=== PATIENT | female | born 1960 | race Caucasian/White ===

== ENCOUNTER 2016-12-20 08:15 | Emergency (ER) | payer MEDICAID ==
[2016-12-20] MEDS ORDERED: NS 1,000 ML IV ONE (08:44)
[2016-12-20] MEDS ORDERED: ONDANSETRON 4 MG/2 ML VIAL IVP ONE (08:44)
[2016-12-20] MEDS ORDERED: KETOROLAC 30 MG/1 ML SDV IVP ONE (08:44)
[2016-12-20 08:58] LABS: % IMMATURE GRANULYOCYTES 0.3 % (0.0-1.1); ABSOLUTE IMMATURE GRANULOCYTES 0.02 10^3/uL (0.00-0.10); ADD DIFF? NO; ADD MORPH? NO; ADD SCAN? NO; ATYPICAL LYMPHOCYTE FLAG 0 (0-99); FRAGMENT RBC FLAG 0 (0-99); HEMATOCRIT 46.1 % (38.0-47.0); HEMOGLOBIN 15.3 g/dL (12.6-16.3); LEFT SHIFT FLG 0 (0-99); LIPEMIA HEMOLYSIS FLAG 80 (0-99); MEAN CELL HEMOGLOBIN CONCENTR. 33.2 g/dL (32.4-36.7); MEAN CELL VOLUME 87.3 fL (81.5-99.8); MEAN PLATELET VOLUME 8.9 fL (8.7-11.7); PLATELET CLUMPS FLAG 50 (0-99); PLATELET COUNT 351 10^3/uL (150-400); RED BLOOD CELL COUNT 5.28 10^6/uL (4.18-5.33); RED CELL DISTRIBUTION WIDTH 13.2 % (11.5-15.2)
[2016-12-20 09:00] LABS: COLOR YELLOW; LEUKOCYTE ESTERASE,URINE NEGATIVE (NEGATIVE); NITRITE,URINE NEGATIVE (NEGATIVE); PH,URINE 5.5 (5.0-7.5)
--- NOTE | 2016-12-20 09:05 | EDPHY ---
H & P Time Seen by Provider: 12/20/16 08:33 HPI/ROS: CHIEF COMPLAINT: Abdominal pain and nausea History by patient HISTORY OF PRESENT ILLNESS: 54-year-old woman with a history of kidney stones and migraines presents complaining of 3 days of nausea and now left lower quadrant pain radiating into her groin. Patient states that [place] night she thought she might have eaten something bad because she felt very nauseated. She also notes that she had an episode of severe left groin pain that she describes as sharp and sudden onset and lasted a couple hours and then spontaneously resolving. The nausea started after this. She has had no diarrhea. She denies any back pain. This feels different than her prior kidney stones. She does note some pelvic fullness and feeling that she needs to urinate but having difficulty actually going. She denies any frequency, dysuria but she does have some urgency and hesitancy. She has been having normal bowel movements at least not seem to affect her symptoms. She has been anorexic and not able to eat. She is taking oral fluids. She denies any fever chills. REVIEW OF SYSTEMS: As in HPI, and all other systems reviewed and are negative - Personal History LMP (Females 10-55): Post Menopausal - Medical/Surgical History Hx Asthma: Yes Hx Chronic Respiratory Disease: No Hx Diabetes: No Hx Cardiac Disease: No Hx Renal Disease: No Hx Cirrhosis: No Hx Alcoholism: No Hx HIV/AIDS: No Hx Splenectomy or Spleen Trauma: No Other PMH: med hx-KIDNEY STONES. surg-c-sect - Family History Significant Family History: No pertinent family hx - Social History Smoking Status: Never smoked - Physical Exam Exam: General Appearance: Alert, slightly uncomfortable appearing. Eyes: Pupils equal and round no pallor or injection. ENT, Mouth: Mucous membranes moist. Respiratory: Normal, effort, There are no retractions, lungs are clear to auscultation. Cardiovascular: Regular rate and rhythm. Gastrointestinal: Abdomen is soft and mild diffuse tenderness, no masses, bowel sounds normal. No rebound or guarding Back: No CVA tenderness Neurological: Awake, alert and oriented x 3, no pronator drift, normal gait, no pronator drift Skin: Warm and dry, no rashes. Musculoskeletal: Neck is supple nontender. Extremities are symmetrical, full range of motion. Psychiatric: Patient has normal affect, there is no agitation. Constitutional: Initial Vital Signs Temperature (C) 36.9 C 12/20/16 08:20 Heart Rate 83 12/20/16 08:20 Respiratory Rate 18 12/20/16 08:20 Blood Pressure 125/60 H 12/20/16 08:20 O2 Sat (%) 95 12/20/16 08:20 O2 Delivery Mode Room Air Allergies/Adverse Reactions: No Known Allergies Allergy (Verified 12/20/16 08:55) Home Medications: Medication Instructions Recorded Naproxen 375 mg PO BID #20 tablet 12/20/16 Tamsulosin HCl [Flomax 0.4 MG (*)] 0.4 mg PO DAILY #10 cap 12/20/16 Medical Decision Making ED Course/Re-evaluation: 55-year-old woman presents with nausea, sudden onset left lower quadrant and groin pain with no fever and mild abdominal tenderness. Labs are unremarkable. Urinalysis shows hematuria and presentation is suggestive of kidney stone. Noncontrast CT was obtained because of the tenderness and slightly atypical presentation which showed a 4 mm stone at the left UV junction with mild hydronephrosis. The radiologist also notes a hypodense lesion her liver that he recommend follow-up with ultrasound. This liver lesion is unchanged from 2015. Patient was given IV fluids, Zofran and ketorolac with resolution of her nausea but persistent pain. She was then given IV lidocaine with resolution of her symptoms. We discussed the CT findings and ongoing home care for the kidney stone. She will also follow up with her primary care physician, Dr. Mccord, to schedule an ultrasound for the liver lesion as recommended by the radiologist. Patient understands and is agreeable to this plan. - Data Points Laboratory Results: Laboratory Results 12/20/16 08:45 12/20/16 08:45 12/20/16 12/20/16 12/20/16 08:55 08:45 08:45 WBC 7.75 10^3/uL 10^3/uL (3.80-9.50) RBC 5.28 10^6/uL 10^6/uL (4.18-5.33) Hgb 15.3 g/dL g/dL (12.6-16.3) Hct 46.1 % % (38.0-47.0) MCV 87.3 fL fL (81.5-99.8) MCH 29.0 pg pg (27.9-34.1) MCHC 33.2 g/dL g/dL (32.4-36.7) RDW 13.2 % % (11.5-15.2) Plt Count 351 10^3/uL 10^3/uL (150-400) MPV 8.9 fL fL (8.7-11.7) Neut % (Auto) 66.3 % % (39.3-74.2) Lymph % (Auto) 27.7 % % (15.0-45.0) [place] % (Auto) 4.3 % L % (4.5-13.0) Eos % (Auto) 1.0 % % (0.6-7.6) Baso % (Auto) 0.4 % % (0.3-1.7) Nucleat RBC Rel Count 0.0 % % (0.0-0.2) Absolute Neuts (auto) 5.14 10^3/uL 10^3/uL (1.70-6.50) Absolute Lymphs (auto) 2.15 10^3/uL 10^3/uL (1.00-3.00) Absolute Monos (auto) 0.33 10^3/uL 10^3/uL (0.30-0.80) Absolute Eos (auto) 0.08 10^3/uL 10^3/uL (0.03-0.40) Absolute Basos (auto) 0.03 10^3/uL 10^3/uL (0.02-0.10) Absolute Nucleated RBC 0.00 10^3/uL 10^3/uL (0-0.01) Immature Gran % 0.3 % % (0.0-1.1) Immature Gran # 0.02 10^3/uL 10^3/uL (0.00-0.10) Sodium 143 mEq/L mEq/L (134-144) Potassium 4.5 mEq/L mEq/L (3.5-5.2) Chloride 102 mEq/L mEq/L (97-110) Carbon Dioxide 24 mEq/l mEq/l (22-31) Anion Gap 17 mEq/L H mEq/L (8-16) BUN 18 mg/dL mg/dL (7-23) Creatinine 0.8 mg/dL mg/dL (0.6-1.0) Estimated GFR > 60 Glucose 92 mg/dL mg/dL (70-100) Calcium 10.2 mg/dL mg/dL (8.5-10.4) Total Bilirubin 0.9 mg/dL mg/dL (0.1-1.4) Conjugated Bilirubin 0.2 mg/dL mg/dL (0.0-0.5) Unconjugated Bilirubin 0.7 mg/dL mg/dL (0.0-1.1) AST 22 IU/L IU/L (14-46) ALT 24 IU/L IU/L (9-52) Alkaline Phosphatase 98 IU/L IU/L (38-126) Total Protein 8.8 g/dL H g/dL (6.3-8.2) Albumin 4.6 g/dL g/dL (3.5-5.0) Lipase 146.0 IU/L IU/L (23-300) Urine Color YELLOW Urine Appearance HAZY Urine pH 5.5 (5.0-7.5) Ur Specific [place] >= 1.030 (1.002-1.030) Urine Protein TRACE H (NEGATIVE) Urine Ketones TRACE H (NEGATIVE) Urine Blood 3+ H (NEGATIVE) Urine Nitrate NEGATIVE (NEGATIVE) Urine Bilirubin NEGATIVE (NEGATIVE) Urine Urobilinogen 0.2 EU EU (0.2-1.0) Ur Leukocyte Esterase NEGATIVE (NEGATIVE) Urine RBC 25-50 /hpf H /hpf (0-3) Urine WBC 1-3 /hpf /hpf (0-3) Ur Epithelial Cells 3+ /lpf H /lpf (NONE-1+) Amorphous Sediment 2+ /hpf H /hpf (NONE-1+) Urine Bacteria 1+ /hpf H /hpf (NONE SEEN) Urine Mucus 3+ /lpf H /lpf (NONE-1+) Urine Glucose NEGATIVE (NEGATIVE) Medications Given: Discontinued Medications Sodium Chloride (Ns) 1,000 mls @ 0 mls/hr IV ONCE ONE PRN Reason: Wide Open Stop: 12/20/16 08:45 Last Admin: 12/20/16 09:00 Dose: 1,000 mls Ketorolac Tromethamine (Toradol) 15 mg IVP EDNOW ONE Stop: 12/20/16 08:45 Last Admin: 12/20/16 09:00 Dose: 15 mg Lidocaine HCl (Lidocaine Hcl 2%) 80 mg IVP EDNOW ONE Stop: 12/20/16 09:34 Last Admin: 12/20/16 09:57 Dose: 80 mg Ondansetron HCl (Zofran) 4 mg IVP EDNOW ONE Stop: 12/20/16 08:45 Last Admin: 12/20/16 09:00 Dose: 4 mg Departure - Departure Disposition: Home, Routine, Self-Care Clinical Impression: Renal colic on left side, Lesion of liver Condition: Good Instructions: Kidney Stones (ED) Additional Instructions: You were seen by Dr. Brigette Umanzor today. Return for any worsening or new concerns. Take Flomax at night to help speed up passing of a kidney stone. Please have your primary care physician scheduled ultrasound of your liver to follow up on the lesion is seen on CT scan. Referrals: NONE *PRIMARY CARE P,. [Primary Care Provider] - As per Instructions Prescriptions: Naproxen 375 mg PO BID #20 tablet Tamsulosin HCl [Flomax 0.4 MG (*)] 0.4 mg PO DAILY #10 cap
[2016-12-20 09:09] LABS: ALANINE AMINOTRANSFERASE 24 IU/L (9-52); ALBUMIN 4.6 g/dL (3.5-5.0); ALKALINE PHOSPHATASE 98 IU/L (38-126); ANION GAP 17 mEq/L (8-16); ASPARTATE AMINOTRANSFERASE 22 IU/L (14-46); BILIRUBIN,TOTAL 0.9 mg/dL (0.1-1.4); BILIRUBIN-CONJUGATED 0.2 mg/dL (0.0-0.5); BILIRUBIN-UNCONJUGATED 0.7 mg/dL (0.0-1.1); CALCIUM 10.2 mg/dL (8.5-10.4); CARBON DIOXIDE 24 mEq/l (22-31); CHLORIDE 102 mEq/L (97-110); CREATININE 0.8 mg/dL (0.6-1.0); GLOMERULAR FILTRATION RATE > 60; GLUCOSE 92 mg/dL (70-100); POTASSIUM 4.5 mEq/L (3.5-5.2); SODIUM 143 mEq/L (134-144); TOTAL PROTEIN 8.8 g/dL (6.3-8.2)
[2016-12-20 09:14] LABS: MUCUS 3+ /lpf (NONE-1+)
[2016-12-20 09:15] LABS: AMORPHOUS 2+ /hpf (NONE-1+); BACTERIA 1+ /hpf (NONE SEEN); RBC,URINE 25-50 /hpf (0-3)
[2016-12-20] MEDS ORDERED: LIDOCAINE 2% 100 MG/5 ML SYR IVP ONE (09:33)
[2016-12-20] MEDS ORDERED: DEXTROSE IV ONE (09:35)
[2016-12-20] MEDS ORDERED: LIDOCAINE IV ONE (09:35)
[2016-12-20] MEDS ORDERED: NS 100 ML BAG IV ONE (09:52)
[2016-12-20 11:00] VITALS: RESP 16
[2016-12-20 11:03] VITALS: BP 117/62; PULSE 82; TEMP 98.1; O2SAT 97
== END 2016-12-20 11:01 | disposition home or self-care (01) ==
LOC: CED 08:15
DX: N23 Unspecified renal colic (principal); K76.9 Liver disease, unspecified; J45.909 Unspecified asthma, uncomplicated
CPT/HCPCS: 74176-PO; 80048-PO; 80076-PO; 81003-PO; 81015-PO; 83690-PO; 85025-PO; 96374; J1885; J2001; J2405

== ENCOUNTER → 2017-01-24 | Outpatient (CLI) | payer MEDICAID | LOC: CIMAGING 07:13 | PROVIDERS: ATTEND Family Medicine | DX: K76.89 Other specified diseases of liver (principal); N20.0 Calculus of kidney | CPT/HCPCS: 76705-PO ==

== ENCOUNTER → 2017-03-24 | Outpatient (CLI) | payer MEDICAID ==
[~2017-03-24] MED LIST: GADOBUTROL 10 ML VIAL IVP ONE
== END ==
LOC: FIMAGING 06:57
PROVIDERS: ATTEND Internal Medicine Gastroenterology
DX: D18.03 Hemangioma of intra-abdominal structures (principal)
CPT/HCPCS: A9585